=== PATIENT | male | born 1950 | race Caucasian/White ===

== ENCOUNTER 2018-01-06 08:34 | Day surgery (SDC) | payer OTHER ==
[~2018-01-06] VITALS: Ht 182.9 cm; Wt 103.7 kg
[~2018-01-06 08:34] MED LIST: Inderal60 MG; NAPR500; ROSU10TA
== END 2018-01-06 10:50 | disposition home or self-care (01) ==
LOC: ORSCSDS 08:34
PROVIDERS: Surgery
PROC: 0DBL8ZX Excision of Transverse Colon, Via Natural or Artificial Opening Endoscopic, Diagnostic (ICD-10-PCS; principal; 2018-01-06 10:00)
PROC: 0DBK8ZX Excision of Ascending Colon, Via Natural or Artificial Opening Endoscopic, Diagnostic (ICD-10-PCS; principal; 2018-01-06 10:00)
DX: Z12.11 Encounter for screening for malignant neoplasm of colon (principal); D12.2 Benign neoplasm of ascending colon; D12.3 Benign neoplasm of transverse colon; Z86.010 Personal history of colon polyps; E78.00 Pure hypercholesterolemia, unspecified; I10 Essential (primary) hypertension; E66.01 Morbid (severe) obesity due to excess calories; Z68.33 Body mass index [BMI] 33.0-33.9, adult; Z79.899 Other long term (current) drug therapy
CPT/HCPCS: 88305; J7120

== ENCOUNTER 2023-12-16 06:11 | Day surgery (SDC) | payer OTHER ==
[~2023-12-16] VITALS: Ht 182.9 cm; Wt 104.6 kg
[~2023-12-16 06:11] MED LIST changes: +Crestor20 MG PO; +HYCODAN 5 MG-1.55 ML PO; +Lactated Ringer's 1,000 ML IV ONE; +NAPR500EC PO; +PROP60 PO
[2023-12-16] MEDS ORDERED: CeFAZolin Sodium 2,000 MG VIAL ONE (06:21)
[2023-12-16] MEDS ORDERED: NS 50 ML IV ONE (06:21)
[2023-12-16] MEDS ORDERED: Lactated Ringer's 1,000 ML IV ONE (06:22)
[2023-12-16] MEDS ORDERED: Lidocaine 1%-Epineph 1:100000 20 ML MDV ONE (07:00)
[2023-12-16 08:03] VITALS: BP 112/72
== END 2023-12-16 08:22 | disposition home or self-care (01) ==
LOC: ORSCSDS 06:11
PROVIDERS: Orthopaedic Surgery
PROC: 0JBJ0ZZ Excision of Right Hand Subcutaneous Tissue and Fascia, Open Approach (ICD-10-PCS; principal; 2023-12-16 07:30)
PROC: 0JNJ0ZZ Release Right Hand Subcutaneous Tissue and Fascia, Open Approach (ICD-10-PCS; principal; 2023-12-16 07:30)
DX: M67.441 Ganglion, right hand (principal); M72.0 Palmar fascial fibromatosis [Dupuytren]; I10 Essential (primary) hypertension; E78.5 Hyperlipidemia, unspecified; Z68.31 Body mass index [BMI] 31.0-31.9, adult; Z79.899 Other long term (current) drug therapy
CPT/HCPCS: 88304; J0690; J7120

== ENCOUNTER 2025-07-08 07:45 | Day surgery (SDC) | payer OTHER ==
[~2025-07-08] VITALS: Ht 182.9 cm; Wt 215.0 kg
[~2025-07-08 07:45] MED LIST changes: -Lactated Ringer's 1,000 ML IV ONE
[2025-07-08 10:42] VITALS: BP 115/61
== END 2025-07-08 10:42 | disposition home or self-care (01) ==
LOC: ORSCSDS 07:45
PROVIDERS: Surgery
PROC: 0DBK8ZX Excision of Ascending Colon, Via Natural or Artificial Opening Endoscopic, Diagnostic (ICD-10-PCS; principal; 2025-07-08 09:30)
PROC: 0DBL8ZX Excision of Transverse Colon, Via Natural or Artificial Opening Endoscopic, Diagnostic (ICD-10-PCS; principal; 2025-07-08 09:30)
PROC: 0DBM8ZX Excision of Descending Colon, Via Natural or Artificial Opening Endoscopic, Diagnostic (ICD-10-PCS; principal; 2025-07-08 09:30)
DX: Z12.11 Encounter for screening for malignant neoplasm of colon (principal); Z86.0101 Personal history of adenomatous and serrated colon polyps; D12.4 Benign neoplasm of descending colon; D12.3 Benign neoplasm of transverse colon; D12.2 Benign neoplasm of ascending colon; E78.5 Hyperlipidemia, unspecified; I10 Essential (primary) hypertension; Z79.899 Other long term (current) drug therapy
CPT/HCPCS: 88305; J2704